=== PATIENT | female | born 1965 | race Hispanic/Latino ===

== ENCOUNTER 2022-07-04 10:23 | Outpatient (CLI) | payer BC | END 2022-07-04 10:24 | disposition home or self-care (01) | LOC: CSHRAD 10:23 | PROVIDERS: ATTEND Internal Medicine Rheumatology | DX: M45.A Non-radiographic axial spondyloarthritis (principal); M46.1 Sacroiliitis, not elsewhere classified | CPT/HCPCS: 72202 ==